=== PATIENT | female | born 1970 | race Caucasian/White ===

== ENCOUNTER 2016-12-16 13:04 | Emergency (ER) | payer OTHER, MEDICARE ==
[~2016-12-16] VITALS: Ht 152.4 cm; Wt 46.7 kg
[~2016-12-16 13:04] MED LIST: IBUPROFEN800 MG PO; PERCOCET 325 MG1 TAB PO
--- NOTE | 2016-12-16 13:26 | ED MVC/FALL/TRAUMA COMPLAINT ---
History of Present Illness General Chief Complaint: Low Back Pain/Injury Stated Complaint: BACK PAIN X 5 DAYS Source: patient, family Exam Limitations: no limitations Vital Signs & Intake/Output Vital Signs & Intake/Output Vital Signs Date Time Temp Pulse Resp B/P Pulse O2 O2 Flow FiO2 Ox Delivery Rate 12/16 1531 96.3 88 18 98/62 97 Room Air 12/16 1307 97.3 98 18 116/77 96 Room Air ED Intake and Output 12/17 0000 12/16 1200 Intake Total Output Total Balance Patient 103 lb Weight Allergies Coded Allergies: atropine (Severe, "STOPS MY HEART" 12/16/16) codeine (Mild, "STOMACH PAIN" 12/16/16) meperidine (From Demerol) (VOMITING 12/16/16) Reconcile Medications Amitriptyline HCl 100 MG TABLET 1 TAB PO DAILY UNKNOWN (Reported) Carisoprodol 350 MG TABLET 1 TAB PO BIDP PRN MUSCLE SPASMS (Reported) Duloxetine HCl 60 MG CAPSULE.DR 1 CAP PO DAILY UNKNOWN (Reported) Gabapentin 600 MG TABLET 1 TAB PO TID NEUROPATHY (Reported) Morphine Sulfate (Morphine Sulfate ER) 30 MG TABLET.ER 2 TAB PO DAILY PAIN ( Reported) Oxycodone HCl 15 MG TABLET 1 TAB PO TIDPRN PRN PAIN (Reported) Triage Note: PT STATES THAT SHE HAS CHRONIC BACK PROBLEMS AND FOR THE LAST 5 DAYS PAIN HAS BEEN WORSE. PT STATES THAT SHE FELL 2 DAYS AGO. Triage Nurses Notes Reviewed? yes Onset: Abrupt Duration: day(s): (4-5), constant, continues in ED Timing: recent history Severity: moderate, severe Injuries/Fall Location: back Method of Injury: fall Loss of Consciousness: no loss of consciousness No Modifying Factors: none HPI: 46-year-old female comes into emergency room for evaluation of mid back pain has been going on for the past 4 days. Patient reports that she has a history of chronic back pain and has stimulators in her back. She normally has difficulty with her walking and is unsteady at times but this is her normal baseline. She reports that the other day her knee gave out which happens quite frequently when she turns on her pain stimulator and she fell into a table and hurt her back. The back pain that she is feeling now feels slightly different than her chronic back pain. Her chronic back pain is usually a burning sensation while this pain feels sharp and aching. She has a history of complex regional pain syndrome. She is on morphine 60 mg extended release daily as well as oxycodone 15 mg 1-2 tabs a day as needed for breakthrough pain. She reports that her pain medication at home has not been controlling her pain. Denies any abdominal pain chest pain shortness of breath. Denies any other associated symptoms. (JESSICA CHRISTENSEN) Past History Travel History Traveled to [place] past 21 day No Medical History Any Pertinent Medical History? see below for history Neurological: NONE EENT: NONE Cardiovascular: NONE Respiratory: NONE Gastrointestinal: NONE Hepatic: NONE Renal: NONE Musculoskeletal: REFLEX SYMPATHETIC DYSTROPHY. 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 No (JESSICA CHRISTENSEN) Review of Systems Review of Systems Constitutional: Reports: no symptoms. Eyes: Reports: no symptoms. Ears, Nose, Throat, Mouth: Reports: no symptoms. Respiratory: Reports: no symptoms. Cardiovascular: Reports: no symptoms. Gastrointestinal/Abdominal: Reports: no symptoms. Genitourinary: Reports: no symptoms. Musculoskeletal: Reports: see HPI. Skin: Reports: no symptoms. Neurological/Psychological: Reports: no symptoms. All Other Systems: Reviewed and Negative (JESSICA CHRISTENSEN) Physical Exam Physical Exam General Appearance: well developed/nourished, no apparent distress, alert Head: atraumatic, normal appearance Eyes: Bilateral: normal appearance, PERRL, EOMI. Ears, Nose, Throat, Mouth: hearing grossly normal, moist mucous membrane Neck: normal inspection, full range of motion Respiratory: normal breath sounds, no respiratory distress Cardiovascular: regular rate/rhythm Gastrointestinal: soft Back: vertebral tenderness, paraspinal tenderness Extremities: normal range of motion Neurologic/Psych: awake, alert, oriented x 3, normal gait, normal mood/affect Skin: intact, normal color Core Measures ACS in differential dx? Yes Severe Sepsis Present: No Septic Shock Present: No (JESSICA CHRISTENSEN) Progress Differential Diagnosis: abd injury, C/T/L spine injury, ext injury, ICH, pelvis injury, pnemothorax, spinal cord injury, muscle strain, fracture, Plan of Care: Orders Procedure Date/time Status XRY-THORACOLUMBAR SPINE 12/16 1326 Active Diagnostic Imaging: Viewed by Me: Radiology Read. Discussed w/RAD: Radiology Read. Radiology Impression: EXAM TYPE: RAD - XRY-THORACOLUMBAR SPINE EXAMINATION: XR THORACOLUMBAR SPINE CLINICAL INFORMATION: Fell into table. Pain. COMPARISON: CT thoracic spine 09/05/2012. TECHNIQUE: 2 views of the thoracolumbar spine were obtained. FINDINGS: No fracture or dislocation. Vertebral body heights are preserved. No paravertebral soft tissue prominence demonstrated. Thoracic spinal stimulator is redemonstrated, with the lead terminating at the T8-T9 level. Additional stimulator device is noted, with lead coursing cephalad up the neck and with tip out of field of view. Right upper quadrant surgical clips. IMPRESSION: No acute osseous abnormalities demonstrated. DICTATED BY: MADALYN MANCUSO MD DATE/TIME DICTATED:12/16/161506 RESPIRATORY SUPERVISOR:DOREEN DATE/TIME TRANSCRIBED:12/16/161506 (JESSICA CHRISTENSEN) Departure Departure Disposition: HOME OR SELF CARE Condition: Stable Clinical Impression Primary Impression: Acute exacerbation of chronic low back pain Referrals: CARMEN FRIAS,CAMRYN Mott (PCP/Family) Additional Instructions: Take her pain medications that she normally take at home. Please return to the emergency room if any concerns worsening symptoms. Please go over all results of today's visit with your primary care doctor. Contact your primary care doctor to let them know you were here in the emergency room. There may be nonspecific findings which may not be related to your visit today here in the emergency room but may require further evaluation and chronic monitoring by your primary care doctor. If you had a laceration today the chance of foreign body always remains. You should follow-up with your primary care doctor for recheck in 3-5 days for a wound check. If you had an x-ray done there is a chance that a fracture could have been missed on initial read and you should follow-up with your primary care doctor for repeat x-rays if symptoms persist. If your blood pressure was elevated here in the emergency room please have rechecked by her primary care doctor within the next 48 hours by your primary care doctor. If you were prescribed a narcotic here in the emergency room or any type of controlled substances you're not allowed to drive while taking this medication or operate any type of heavy machinery. Narcotics can make you feel lightheaded dizziness nausea and can cause constipation. You may need to pick and shovel man a stool softener. Thank you for choosing [facility] emergency room. Please return to the emergency room immediately if you have any other concerns worsening of symptoms. Departure Forms: Customer Survey General Discharge Information Comments 12/16/2016 7:29:32 PM Patient clinically looks well. Patient is nontoxic-appearing. Patient's pain is consistent with musculoskeletal pain. No evidence of acute trauma. Pain is reproducible in the back. No complaints of abdominal pain. Patient feels better after IM Dilaudid. Patient will follow up with her pain management doctor. Return if any other concerns worsening symptoms. (JESSICA CHRISTENSEN) PA/JIG BOX OPERATOR Co-Sign Statement Statement: ED Attending supervision documentation- [] I saw and evaluated the patient. I have also reviewed all the pertinent lab results and diagnostic results. I agree with the findings and the plan of care as documented in the PA's/JIG BOX OPERATOR's documentation. X I have reviewed the ED Record and agree with the PA's/JIG BOX OPERATOR's documentation. [] Additions or exceptions (if any) to the PAs/JIG BOX OPERATOR's note and plan are summarized below: [] (GEMA FRIAS,LANDY) ED Attending Observation Initial Observation Note: I have seen and personally examined CAITLYN SINGH on 12/16/16 at 1928. I agree with the current emergency department documentation. The disposition (admission or discharge) is uncertain at this time, she needs a period of observation for the following reason(s): The ED Nurse caring for this patient has been personally informed as to what the patient is being observed for. (JESSICA CHRISTENSEN)
[2016-12-16] MEDS ORDERED: MORPHINE SULFAT30 M3 PO (14:16)
[2016-12-16] MEDS ORDERED: OXYCODONE HCL15 M1 PO (14:16)
[2016-12-16] MEDS ORDERED: AMITRIPTYLINE100 M2 PO (14:17)
[2016-12-16] MEDS ORDERED: DULOXETINE HCL60 MG PO (14:17)
[2016-12-16] MEDS ORDERED: CARISOPRODOL350 M1 PO (14:18)
[2016-12-16] MEDS ORDERED: GABAPENTIN600 M1 PO (14:18)
[2016-12-16 15:31] VITALS: BP 98/62
--- NOTE | 2016-12-16 15:41 | RADIOLOGY REPORT ---
EXAMINATION: XR THORACOLUMBAR SPINE CLINICAL INFORMATION: Fell into table. Pain. COMPARISON: CT thoracic spine 09/05/2012. TECHNIQUE: 2 views of the thoracolumbar spine were obtained. FINDINGS: No fracture or dislocation. Vertebral body heights are preserved. No paravertebral soft tissue prominence demonstrated. Thoracic spinal stimulator is redemonstrated, with the lead terminating at the T8-T9 level. Additional stimulator device is noted, with lead coursing cephalad up the neck and with tip out of field of view. Right upper quadrant surgical clips. IMPRESSION: No acute osseous abnormalities demonstrated.
== END 2016-12-16 16:23 ==
LOC: ERH 13:04
DX: M54.5 Low back pain (principal)
CPT/HCPCS: 72080; 96372

== ENCOUNTER 2017-12-25 07:33 | Emergency (ER) | payer OTHER ==
[~2017-12-25] VITALS: Ht 154.9 cm; Wt 47.6 kg
[~2017-12-25 07:33] MED LIST changes: +AMITRIPTYLINE100 M2 PO; +CARISOPRODOL350 M1 PO; +DULOXETINE HCL60 MG PO; +GABAPENTIN600 M1 PO; +MORPHINE SULFAT30 M3 PO; +OXYCODONE HCL15 M1 PO
--- NOTE | 2017-12-25 08:27 | ED HAND/WRIST INJURY COMPLAINT ---
History of Present Illness General Chief Complaint: Hand or Wrist Injury Stated Complaint: LFT HAND INJURY Source: patient Exam Limitations: no limitations Vital Signs & Intake/Output Vital Signs & Intake/Output Vital Signs Date Time Temp Pulse Resp B/P B/P Pulse O2 O2 Flow FiO2 Mean Ox Delivery Rate 12/25 1046 97.6 97 18 128/75 100 Room Air 12/25 0857 98 12/25 0737 98.2 89 20 109/73 99 Room Air Allergies Coded Allergies: atropine (Severe, "STOPS MY HEART" 12/16/16) codeine (Mild, "STOMACH PAIN" 12/16/16) meperidine (From Demerol) (VOMITING 12/16/16) Reconcile Medications Amitriptyline HCl 100 MG TABLET 1 TAB PO DAILY UNKNOWN (Reported) Carisoprodol 350 MG TABLET 1 TAB PO BIDP PRN MUSCLE SPASMS (Reported) Duloxetine HCl 60 MG CAPSULE.DR 1 CAP PO DAILY UNKNOWN (Reported) Gabapentin 600 MG TABLET 1 TAB PO TID NEUROPATHY (Reported) Morphine Sulfate (Morphine Sulfate ER) 30 MG TABLET.ER 2 TAB PO DAILY PAIN ( Reported) Oxycodone HCl 15 MG TABLET 1 TAB PO TIDPRN PRN PAIN (Reported) Triage Note: WOKE UP YESTERDAY WITH LEFT WRIST DROP. 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 DENIES INJURY. STATES HX OF RSD. Triage Nurses Notes Reviewed? yes Occurred: 2 DAYS AGO Duration: day(s):, constant, continues in ED Timing: no prior history Severity: severe Pain/Injury Location: Left: Wrist, Hand. HPI: Patient presents for evaluation of a left hand and wrist weakness that was noted upon awakening Sunday. Patient denies any associated injury or pain. She is feeling numbness over dorsal aspect of the left hand. There is also weakness of the wrist and hand. Patient denies slurred speech aphasia or other focal neurologic deficit. Patient likewise denies headache or neck pain. Patient is left-hand dominant. Past History Travel History Traveled to [place] past 21 day No Medical History Any Pertinent Medical History? see below for history Neurological: NONE EENT: NONE Cardiovascular: NONE Respiratory: NONE Gastrointestinal: NONE Hepatic: NONE Renal: NONE Musculoskeletal: REFLEX SYMPATHETIC DYSTROPHY. 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 No Review of Systems Review of Systems Constitutional: Reports: no symptoms. EENTM: Reports: no symptoms. Respiratory: Reports: no symptoms. Cardiovascular: Reports: no symptoms. GI: Reports: no symptoms. Genitourinary: Reports: no symptoms. Musculoskeletal: Reports: see HPI. Skin: Reports: no symptoms. Neurological/Psychological: Reports: no symptoms. Hematologic/Endocrine: Reports: no symptoms. Immunologic/Allergic: Reports: no symptoms. All Other Systems: Reviewed and Negative Physical Exam Physical Exam Hand Left: SEE BELOW Hand Right: SEE BELOW Comments: Gen.: Well-nourished, well-developed, no acute respiratory distress. Head: Normocephalic, atraumatic. Eyes: Normal inspection bilaterally Ears: Normal inspection bilaterally Nose: Normal inspection Throat/mouth : Moist mucosa Neck: Supple, full range of motion, no goiter Heart: Regular rate and rhythm Lungs: Quiet respirations Back: Normal range of motion Extremities: Left hand: Decreased sensation to light touch over the dorsal radial aspect, unable to extend at the wrist. 2 /5 hand grasp strength on the left side. No soft tissue swelling or erythema. Sensation intact to all fingers to light touch. Decreased sensation over the midline dorsal aspect of the left forearm, decreased deep tendon reflexes over the forearm. Sensation intact to arm. Neurologic: Cranial nerves: Disconjugate gaze (patient states she's had a "lazy eye" all her life), speech is clear, gait is stable Skin: warm and dry Psychiatric: Calm, cooperative, no apparent delusions or hallucinations. Diagram Left Arm Back 1) DECREASED SENSATION 2) DECREASED SENSATION Progress Differential Diagnosis: cva, NERVE PALSY, SPRAIN, tia Plan of Care: Orders Procedure Date/time Status Durable Medical Equipment 12/25 0839 Active Diagnostic Imaging: Viewed by Me: CT Scan. Discussed w/RAD: CT Scan. Radiology Impression: PATIENT: CAITLYN SINGH PRESENT AGE: 47 PATIENT ACCOUNT NO: [id number] : 70 LOCATION: [facility] ORDERING PHYSICIAN: Josep Winters MD SERVICE DATE: 04/10/18-0952 EXAM TYPE: CAT - CT HEAD WO IV CONTRAST CT HEAD WITHOUT CONTRAST CLINICAL INFORMATION: Left upper extremity radial/ulnar nerve palsy. COMPARISON: Head CT 11/15/2014. TECHNIQUE: Contiguous axial imaging was performed from the skull base to vertex without intravenous administration of contrast. FINDINGS: Exam is limited by artifact secondary to electrodes within the right and left occipital scalp. There is no intracranial hemorrhage accounting for artifact. There is no hydrocephalus, extra-axial surface collection, midline shift, or other herniation pattern. [place] to white matter differentiation is diffusely maintained without evidence of an evolved acute territorial infarct. The basilar cisterns are preserved. No significant soft tissue abnormality. No acute osseous abnormality. There is hyperostosis frontalis interna. The paranasal sinuses and the mastoid air cells are well-aerated. IMPRESSION: Exam is limited by artifact secondary to electrodes within the right and left occipital scalp. Accounting for artifact, no definite acute intracranial findings are appreciated. DICTATED BY: Josep Garrison MD DATE/TIME DICTATED:12/25/171041 ACCOUNTING SPECIALIST:DOREEN DATE/TIME TRANSCRIBED:12/25/171041 CONFIDENTIAL, DO NOT COPY WITHOUT APPROPRIATE AUTHORIZATION. <Electronically signed in Other Vendor System> SIGNED BY: Josep Garrison MD 12/25/17 1053 Comments: 12/25/2017 9:06:09 AM patient case discussed with Dr. Solomon who recommends a CAT scan for the possibility of a stroke causing the patient's symptoms. If there is evidence of a CVA she would recommend hospitalization for additional testing such as echocardiogram or carotid Doppler studies. If the head CT is negative patient could follow-up as an outpatient in her office. Departure Departure Disposition: HOME OR SELF CARE Condition: Stable Clinical Impression Primary Impression: Acute radial nerve palsy of left upper extremity Referrals: Emma FIRAS,Zach Mott (PCP/Family) Medardo FRIAS,Avis Baca Additional Instructions: Follow-up with Dr. SOLOMON this week for reevaluation. Use the wrist splint until seen in follow-up. Notify your primary care doctor of this emergency department visit and treatment plan. Return if any concerns or sudden worsening. Please note that there might be incidental findings in your evaluation that are unrelated to the current emergency department visit. Please notify your primary care doctor about this emergency department visit in order to obtain and review all of the testing performed so that these incidental findings can be monitored as needed. If you had an x-ray performed, please understand that some fractures may not be seen on the initial set of x-rays. If your symptoms persist you might need a repeat set of x-rays to check for such a fracture. If you had a laceration evaluated, please understand that foreign bodies such as glass or wood may not be visible to the naked eye or on plain x-rays. If the wound becomes red, swollen, increasingly more painful or if there is any drainage from the wound, please have it reevaluated by a physician for the possibility of a retained foreign body. If you're unable to follow up as outlined in the discharge instructions please return to the emergency department. Thank you for choosing the [facility] Emergency Department for your care. It was a pleasure to serve you today. Josep Winters M.D. [facility] Departure Forms: Customer Survey General Discharge Information
[2017-12-25 10:46] VITALS: BP 128/75
--- NOTE | 2017-12-25 10:53 | CT SCAN REPORT ---
CT HEAD WITHOUT CONTRAST CLINICAL INFORMATION: Left upper extremity radial/ulnar nerve palsy. COMPARISON: Head CT 11/15/2014. TECHNIQUE: Contiguous axial imaging was performed from the skull base to vertex without intravenous administration of contrast. FINDINGS: Exam is limited by artifact secondary to electrodes within the right and left occipital scalp. There is no intracranial hemorrhage accounting for artifact. There is no hydrocephalus, extra-axial surface collection, midline shift, or other herniation pattern. [place] to white matter differentiation is diffusely maintained without evidence of an evolved acute territorial infarct. The basilar cisterns are preserved. No significant soft tissue abnormality. No acute osseous abnormality. There is hyperostosis frontalis interna. The paranasal sinuses and the mastoid air cells are well-aerated. IMPRESSION: Exam is limited by artifact secondary to electrodes within the right and left occipital scalp. Accounting for artifact, no definite acute intracranial findings are appreciated.
== END 2017-12-25 11:33 ==
LOC: ERH 07:33
DX: G56.32 Lesion of radial nerve, left upper limb (principal)